=== PATIENT | male | born 1950 | race Two or more races ===

== ENCOUNTER 2020-11-10 16:00 | Inpatient (IN) | payer BC, OTHER ==
[2020-11-10] VITALS (7 sets, daily range): BP systolic 116–161; BP diastolic 55–78
[~2020-11-10] VITALS: Ht 180.3 cm; Wt 99.3 kg
[2020-11-10] MEDS ORDERED: ATOR40TA PO (16:58)
[2020-11-10] MEDS ORDERED: AMLO-212 PO (16:58)
[2020-11-10] MEDS ORDERED: SERT-439 PO (16:58)
[2020-11-10] MEDS ORDERED: BUPR-52 PO (16:58)
[2020-11-10] MEDS ORDERED: LEVO50TA8 PO (16:58)
[2020-11-10] MEDS ORDERED: IV NS 0.9% 1,000 ML IV PRN (18:00)
[2020-11-10] MEDS ORDERED: ONDANSETRON HCL/PF 4 MG/2 ML VIAL IVP PRN (18:00)
[2020-11-10] MEDS ORDERED: HYDROCODONE/APAP 5/325MG TABLET PO PRN (18:00)
[2020-11-10] MEDS ORDERED: ACETAMINOPHEN 325 MG TABLET PO PRN (18:00)
[2020-11-10] MEDS ORDERED: MAGNESIUM HYDROXIDE 30 ML UDC PO PRN (18:00)
[2020-11-10] MEDS ORDERED: MAG HYDROX/AL HYDROX/SIMETH 30 ML UDC PO PRN (18:00)
[2020-11-10] MEDS ORDERED: Z GUARD REMEDY 2 OZ OINT TP PRN (18:00)
[2020-11-10] MEDS ORDERED: DEXTROSE 50%-WATER 50 ML DISP.SYRIN IV PRN (18:30)
--- NOTE | 2020-11-10 18:30 | NUR ---
RN INITIAL NOTES RECEIVED PT DIRECT ADMIT FROM [facility]. PT A/OX2-3 WITH PERIODS OF CONFUSION. ON 02 VIA [place]. NO RESPIRATORY DISTRESS NOTED. PLACED COMFORTABLY TO BED. CONNECTED TO MONITOR. TENA PICC IN PLACE. D5W, POTASSIUM CHLORIDE AND POTASSIUM PHOSPHATE INFUSING. INSULIN DRIP, HEPARIN DRIP AND AMIO DRIP OFF PRIOR TO TRANSFER PER REPORT. CALLED DR ALCALA FOR ADMISSION ORDERS. SKIN ASSESSMENT DONE, PICTURES TAKEN AND PLACED IN CHART. WILL MONITOR
[2020-11-10 18:44] LABS: HEMOGLOBIN 10.9 g/dL (13.5-17.5); NEUTROPHILS # (AUTO) 8.2 /CMM (1.8-8.9)
[2020-11-10 18:45] LABS: CALCIUM, SERUM 7.8 mg/dL (8.5-10.1); CREATININE 1.3 mg/dL (0.6-1.3); POTASSIUM 4.2 mmol/L (3.5-5.1)
[2020-11-10 18:47] LABS: BASOPHILS % (AUTO) 0.2 % (0.0-2.0); EOSINOPHILS % (AUTO) 0.2 % (0.0-6.0); HEMATOCRIT 32 % (39-51); LYMPHOCYTES # (AUTO) 0.5 /CMM (0.8-4.8); LYMPHOCYTES % (AUTO) 5.5 % (20.0-44.0); MEAN CORPUSCULAR HGB CONC 34 g/dl (31.0-36.0); MEAN CORPUSCULAR VOLUME 93 fL (80-96); MONOCYTES # (AUTO) 0.8 /CMM (0.1-1.30); NEUTROPHILS % (AUTO) 86.1 % (43.0-81.0); PLATELET COUNT (AUTO) 107 /CMM (150-450); RED BLOOD CELL COUNT(AUTO) 3.49 MIL/uL (4.5-6.0); WHITE BLOOD COUNT (AUTO) 9.6 K/uL (4.3-11.0)
[2020-11-10 18:48] LABS: MAGNESIUM 2.4 mg/dL (1.8-2.4); PHOSPHORUS 3.2 mg/dL (2.5-4.9)
--- NOTE | 2020-11-10 19:27 | NUR ---
RN NOTES LAB VALUES RELAYED TO DR ALCALA. AWAITING FOR CALL BACK. NO SIGNIFICANT CHANGE NOTED. DENIES ANY PAIN. WILL ENDORSE FOR CONTINUITY OF CARE
--- NOTE | 2020-11-10 19:46 | NUR ---
ORDERS FROM CARI TO D/C NS AND CONTINUE D5W AT 75CC/HR WITH CBC, BMP, MG, AND PHOS LABS IN THE AM.
[2020-11-10 20:03] LABS: BAND % (MANUAL) 7 % (0.0-5.0); LYMPHOCYTES % (MANUAL) 8 % (16-48); MONOCYTES % (MANUAL) 5 % (0-11.0); NEUTROPHILS % (MANUAL) 80 (42-76)
[2020-11-10] MEDS: IV D5W 1,000 ML IV PRN (20:05)
[2020-11-10] MEDS: ENOXAPARIN SODIUM 40 MG/0.4 ML DISP.SYRIN SQ SCH (20:52)
[2020-11-10] MEDS: BUPROPION XL 150 MG TAB.ER.24 PO SCH (21:07)
[2020-11-10] MEDS: BLOOD SUGAR DIAGNOSTIC 1 EACH STRIP IN SCH (21:07)
[2020-11-10] MEDS: INSULIN REGULAR, HUMAN 100 UNIT/ML 3 ML VIAL SQ PRN (21:21)
[2020-11-11] VITALS (17 sets, daily range): BP systolic 127–154; BP diastolic 57–95
[2020-11-11] MEDS: INSULIN REGULAR, HUMAN 100 UNIT/ML 3 ML VIAL SQ PRN ×6 (01:24→23:29)
[2020-11-11] MEDS: BLOOD SUGAR DIAGNOSTIC 1 EACH STRIP IN SCH ×6 (01:26→23:24)
[2020-11-11 05:23] LABS: BASOPHILS % (AUTO) 0.3 % (0.0-2.0); EOSINOPHILS % (AUTO) 0.1 % (0.0-6.0); HEMATOCRIT 32 % (39-51); HEMOGLOBIN 10.9 g/dL (13.5-17.5); LYMPHOCYTES # (AUTO) 0.6 /CMM (0.8-4.8); LYMPHOCYTES % (AUTO) 7.2 % (20.0-44.0); MEAN CORPUSCULAR HGB CONC 34 g/dl (31.0-36.0); MEAN CORPUSCULAR VOLUME 92 fL (80-96); MONOCYTES # (AUTO) 0.6 /CMM (0.1-1.30); MONOCYTES % (AUTO) 7.1 % (2.0-12.0); NEUTROPHILS # (AUTO) 7.5 /CMM (1.8-8.9); NEUTROPHILS % (AUTO) 85.3 % (43.0-81.0); PLATELET COUNT (AUTO) 122 /CMM (150-450); RED BLOOD CELL COUNT(AUTO) 3.47 MIL/uL (4.5-6.0); WHITE BLOOD COUNT (AUTO) 8.8 K/uL (4.3-11.0)
[2020-11-11 05:45] LABS: CALCIUM, SERUM 7.9 mg/dL (8.5-10.1); CREATININE 1.2 mg/dL (0.6-1.3); MAGNESIUM 2.2 mg/dL (1.8-2.4); PHOSPHORUS 2.7 mg/dL (2.5-4.9)
--- NOTE | 2020-11-11 07:45 | NUR ---
EXTRACTOR OPERATOR SOLVENT PROCESS OPENING NOTES Patient received in bed and not in any respiratory distress. No c/o sob. On 02 at 3 liters with 02 Saturation of 96%. Patient's Iv D5 running at 75 ml /hour to right upperarm picc line. No c/o pain or discomfort. Bed is in lowest and locked position. Call light with in reach. Will continue to monitor.
[2020-11-11] MEDS: LEVOTHYROXINE SODIUM 50 MCG TABLET PO SCH (09:07)
[2020-11-11] MEDS: SERTRALINE HCL 50 MG TABLET PO SCH (09:07)
[2020-11-11] MEDS: AMLODIPINE BESYLATE 5 MG TABLET PO SCH (09:07)
[2020-11-11] MEDS: ATORVASTATIN 40 MG TABLET PO SCH (09:07)
[2020-11-11 12:24] LABS: BILIRUBIN,URINE NEGATIVE (NEGATIVE); COLOR,URINE YELLOW (YELLOW); LEUKOCYTE ESTERASE ,URINE TRACE (NEGATIVE); NITRITE, URINE NEGATIVE (NEGATIVE); PH,URINE 5.5 (5.0-8.0); PROTEIN,URINE 30 mg/dl (NEGATIVE); UGLUCOSE 250 MG/DL mg/dL (NEGATIVE)
--- NOTE | 2020-11-11 12:32 | NUR ---
LAND CONSERVATION SPECIALIST NOTES Patient transferred to Med surg at 12 noon. Prior to transfer, patient provided georgina care. Noted with 400 cc urine output in urinal. Collect Urine sample per MD orders. Patient did not c/o sob, no s/s of respiratory distress. Report given at bedside to EDMAR Hickey. Patient transferred with sock mender. On 02 3 liters while transferring with 02 sat 98%.
[2020-11-11] MEDS: IV D5W 1,000 ML IV PRN (12:59)
[2020-11-11 13:07] LABS: BACTERIA,URINE Few /HPF (None Seen); SQUAMOUS EPITHELIAL CELL,UR Rare /HPF (None Seen)
[2020-11-11 13:08] LABS: URINE AMORPHOUS URATE Few /HPF (None Seen)
--- NOTE | 2020-11-11 19:53 | NUR ---
END OF SHIFT SUMMARY RECEIVED PT VIA BED. TRANSFERRED PT FROM ICU. BEDSIDE REPORT GIVEN BY REBECCA. NC 3LPM. A/O X 2-3. NO SOB NOTED. NO S/S OF RESPIRATORY DISTRESS. IV SITE TENA PICC. L AC #18, INTACT, D5W RUNNING @ 75 ML/HR. ON CLEAR LIQUID DIET. SAFETY MEASURES MAINTAINED. BED IN LOWEST POSITION, BRAKES LOCKED. SIDE RAILS UP. CALL LIGHT WITHIN REACH. WILL ENDORSE TO UNHAIRING INSPECTOR FOR ELEUTERIO.
--- NOTE | 2020-11-11 20:18 | NUR ---
MS/TELE/RN RECEIVED PATIENT LYING ON AWAKE, ALERT, ORIENTED, COMFORTABLE, NO C/O PAIN, NO DISTRESS NOTE, FALL PRECAUTIONS PER PROTOCOL, ENCOURAGED TO USE THE CALL LIGHT FOR ANY ASSISTANCE, VERBALIZED UNDERSTANDING, WILL MONITOR.
[2020-11-11] MEDS: BUPROPION XL 150 MG TAB.ER.24 PO SCH (23:23)
[2020-11-11] MEDS: ENOXAPARIN SODIUM 40 MG/0.4 ML DISP.SYRIN SQ SCH (23:29)
[2020-11-12] VITALS: BP 144/80
[2020-11-12] MEDS: INSULIN REGULAR, HUMAN 100 UNIT/ML 3 ML VIAL SQ PRN ×6 (01:10→22:33)
[2020-11-12] MEDS: BLOOD SUGAR DIAGNOSTIC 1 EACH STRIP IN SCH ×6 (01:13→22:32)
[2020-11-12 04:00] VITALS: BP 157/50
[2020-11-12] MEDS: IV D5W 1,000 ML IV PRN (04:25)
[2020-11-12 06:58] LABS: BASOPHILS % (AUTO) 0.2 % (0.0-2.0); EOSINOPHILS % (AUTO) 0.1 % (0.0-6.0); HEMATOCRIT 32 % (39-51); HEMOGLOBIN 10.8 g/dL (13.5-17.5); LYMPHOCYTES # (AUTO) 0.8 /CMM (0.8-4.8); LYMPHOCYTES % (AUTO) 9.8 % (20.0-44.0); MEAN CORPUSCULAR HGB CONC 34 g/dl (31.0-36.0); MEAN CORPUSCULAR VOLUME 93 fL (80-96); MONOCYTES # (AUTO) 0.5 /CMM (0.1-1.30); MONOCYTES % (AUTO) 6.3 % (2.0-12.0); NEUTROPHILS # (AUTO) 6.8 /CMM (1.8-8.9); NEUTROPHILS % (AUTO) 83.6 % (43.0-81.0); PLATELET COUNT (AUTO) 147 /CMM (150-450); RED BLOOD CELL COUNT(AUTO) 3.48 MIL/uL (4.5-6.0); WHITE BLOOD COUNT (AUTO) 8.2 K/uL (4.3-11.0)
--- NOTE | 2020-11-12 07:01 | NUR ---
MS/TELE/RN PATIENT IS AWAKE, ALERT, ORIENTED, COMFORTABLE, NO C/O PAIN, NO DISTRESS NOTED, ON AND OFF SLEEP NOTED, THE WHOLE SHIFT, ALL NEEDS ATTENDED AT THIS TIME, WILL CONTINUE TO MONITOR.
[2020-11-12 07:15] LABS: CALCIUM, SERUM 8.1 mg/dL (8.5-10.1); CREATININE 1.2 mg/dL (0.6-1.3); MAGNESIUM 2.2 mg/dL (1.8-2.4); PHOSPHORUS 2.4 mg/dL (2.5-4.9); POTASSIUM 3.8 mmol/L (3.5-5.1)
[2020-11-12] MEDS: LEVOTHYROXINE SODIUM 50 MCG TABLET PO SCH (08:11)
[2020-11-12] MEDS: AMLODIPINE BESYLATE 5 MG TABLET PO SCH (08:11)
[2020-11-12] MEDS: SERTRALINE HCL 50 MG TABLET PO SCH (08:11)
[2020-11-12] MEDS: ATORVASTATIN 40 MG TABLET PO SCH (08:12)
[2020-11-12] MEDS: IV D5W 1,000 ML IV SCH ×2 (08:13→17:01)
[2020-11-12 09:42] VITALS: BP 144/75
[2020-11-12 12:00] VITALS: BP 139/69
[2020-11-12 16:13] VITALS: BP 126/62
--- NOTE | 2020-11-12 19:27 | NUR ---
END OF SHIFT SUMMARY PATIENT IN BED. A/O X 2-3. CONFUSED AT TIMES. NC 3LPM. NO SOB NOTED. NO S/S OF RESPIRATORY DISTRESS. IV SITE TENA PICC, INTACT, D5W RUNNING @100 ML/HR. TELE READING ST 107. ON CLEAR LIQUID DIET. ROUTINE MEDS WERE GIVEN ORDERED. SAFETY MEASURES MAINTAINED. BED IN LOWEST POSITION, BRAKES LOCKED. SIDE RAILS UP. CALL LIGHT WITHIN REACH. WILL ENDORSE TO CERTIFIED TUMOR REGISTRAR FOR ELEUTERIO.
--- NOTE | 2020-11-12 19:30 | NUR ---
TELE/RN OPENING NOTES RECEIVED PATIENT RESTING IN BED. PATIENT IS ALERT AND ORIENTED X 2-3. PATIENTS BREATHING IS EVEN AND UNLABORED. NO SIGNS OF SOB OR RESPIRATORY DISTRESS NOTED. PATIENT HAS IV ACCESS ON RIGHT UA PICC LINE INTACT. SAFETY MEASURES ARE IN PLACE, BED IS LOCKED AND PLACED IN THE LOWEST POSITION. CALL LIGHT IS WITHIN REACH, SIDE RAILS UP X 2. WILL CONTINUE TO MONITOR THROUGH OUT SHIFT.
[2020-11-12 20:00] VITALS: BP 142/84
[2020-11-12] MEDS: BUPROPION XL 150 MG TAB.ER.24 PO SCH (22:21)
[2020-11-12] MEDS: ENOXAPARIN SODIUM 40 MG/0.4 ML DISP.SYRIN SQ SCH (22:22)
[2020-11-13] VITALS: BP 158/84
[2020-11-13] MEDS: INSULIN REGULAR, HUMAN 100 UNIT/ML 3 ML VIAL SQ PRN ×6 (01:26→21:16)
[2020-11-13] MEDS: BLOOD SUGAR DIAGNOSTIC 1 EACH STRIP IN SCH ×6 (01:27→21:11)
[2020-11-13 04:00] VITALS: BP 158/89
[2020-11-13] MEDS: IV D5W 1,000 ML IV SCH (04:32)
--- NOTE | 2020-11-13 06:55 | NUR ---
TELE/RN CLOSING NOTES PATIENT RESTING IN BED. PATIENT IS ALERT AND ORIENTED X 2-3. PATIENTS BREATHING IS EVEN AND UNLABORED. NO SIGNS OF SOB OR RESPIRATORY DISTRESS NOTED. PATIENT HAS IV ACCESS ON RIGHT UA PICC LINE INTACT. ALL NEEDS HAVE BEEN DURING SHIFT. SAFETY MEASURES ARE IN PLACE, BED IS LOCKED AND PLACED IN THE LOWEST POSITION. CALL LIGHT IS WITHIN REACH, SIDE RAILS UP X 2. WILL ENDORSE CARE TO DAY SHIFT NURSE.
[2020-11-13 06:56] LABS: BASOPHILS % (AUTO) 0.2 % (0.0-2.0); EOSINOPHILS % (AUTO) 0.3 % (0.0-6.0); HEMATOCRIT 32 % (39-51); HEMOGLOBIN 10.6 g/dL (13.5-17.5); LYMPHOCYTES # (AUTO) 0.9 /CMM (0.8-4.8); LYMPHOCYTES % (AUTO) 7.5 % (20.0-44.0); MEAN CORPUSCULAR HGB CONC 33 g/dl (31.0-36.0); MEAN CORPUSCULAR VOLUME 92 fL (80-96); MONOCYTES # (AUTO) 0.5 /CMM (0.1-1.30); NEUTROPHILS # (AUTO) 10.9 /CMM (1.8-8.9); PLATELET COUNT (AUTO) 190 /CMM (150-450); RED BLOOD CELL COUNT(AUTO) 3.46 MIL/uL (4.5-6.0); WHITE BLOOD COUNT (AUTO) 12.4 K/uL (4.3-11.0)
[2020-11-13] MEDS: LEVOTHYROXINE SODIUM 50 MCG TABLET PO SCH (07:14)
--- NOTE | 2020-11-13 07:28 | NUR ---
OIL PUMP STATION OPERATOR CHIEF OPENING NOTES PT RECEIVED AWAKE IN BED IN NO ACUTE SIGNS OF DISTRESS. A/O X2-3. ABLE TO MAKE NEEDS KNOWN, DENIES PAIN OR ANY DISCOMFORTS AT THIS TIME. ON 02 VIA N/C AT 3 LPM, TOLERATING WELL WITH NO SOB NOTED. TELE MONITOR SHOWS ST WITH 1ST DEGREE AV BLOCK, HR 102, NO C/O CARDIAC DISTRESS VOICED. TENA PICC LINE INTACT WITH IVF RUNNING ORDERED. SAFETY MEASURES IN PLACE: BED IN LOWEST LOCKED POSITION WITH SR UP X2. CALL LIGHT WITHIN REACH. WILL CONTINUE TO MONITOR
--- NOTE | 2020-11-13 07:53 | NUR ---
CORRECTION: TELEMONITOR IS NOT ST WITH 1ST DEGREE AV BLOCK BUT NSR WITH HR ON THE 90'S, NO C/O CARDIAC DISTRESS VOICED. WILL CONTINUE TO MONITOR.
[2020-11-13 07:57] LABS: CREATININE 1.2 mg/dL (0.6-1.3); MAGNESIUM 1.7 mg/dL (1.8-2.4); PHOSPHORUS 2.7 mg/dL (2.5-4.9); POTASSIUM 3.5 mmol/L (3.5-5.1)
[2020-11-13 08:10] LABS: THYROID STIMULATING HORMONE 3.555 uIU/mL (0.358-3.74); URIC ACID 4.2 mg/dL (2.6-7.2)
[2020-11-13] MEDS: SERTRALINE HCL 50 MG TABLET PO SCH (09:02)
[2020-11-13] MEDS: ATORVASTATIN 40 MG TABLET PO SCH (09:02)
[2020-11-13] MEDS: AMLODIPINE BESYLATE 5 MG TABLET PO SCH (09:03)
[2020-11-13 09:11] VITALS: BP 142/80
[2020-11-13] MEDS: Magnesium 1GM/D5W 100ML PREMIX 100 ML IV SCH ×2 (09:47→10:50)
[2020-11-13] MEDS ORDERED: IV D5W 1,000 ML IV PRN (10:00)
[2020-11-13] MEDS ORDERED: LINA5TAB PO (10:46)
[2020-11-13] MEDS ORDERED: LINAGLIPTIN 5 MG TABLET PO SCH (11:00)
[2020-11-13 15:52] VITALS: BP 156/67
--- NOTE | 2020-11-13 18:30 | NUR ---
RN NOTES PT TRIED TO PLACE ON ROOM AIR. PT NOTED WITH MILD SOB AND DESATURATING TO 85-86%. PT PLACED BACK ON 02 VIA N/C AT 3LPM, SP02 WENT UP TO 93-94%. WILL CONTINUE TO MONITOR.
--- NOTE | 2020-11-13 18:43 | NUR ---
MS RN OPENING NOTES PT AWAKE AND RESTING AT HIGH BACKREST POSITION AT THIS TIME. A/O X2-3. ABLE TO MAKE NEEDS KNOWN. NOTED WITH PERIOD OPF CONFUSION DURING THE DAY, REDIRECTED AND REORIENTED. ON 02 VIA N/C AT 3 LPM, TOLERATING WELL, SP02 [phone] @ THIS TIME. TENA PICC LINE INTACT WITH IVF RUNNING ORDERED. ALL NEEDS AND CARE ATTENDED WELL. SAFETY MEASURES IN PLACE: BED IN LOWEST LOCKED POSITION WITH SR UP X2. CALL LIGHT WITHIN REACH. PT FOR D/C HOME TONIGHT. AWAITING 02 TO BE DELIVERED TO HIS HOME BEFORE DISCHARGING PT. WILL ENDORSE TO FLAKING ROLL OPERATOR NURSE.
--- NOTE | 2020-11-13 19:35 | NUR ---
MS RN NOTES: AMBULANCE CAME TO CONCESSION ATTENDANT PATIENT TO GO HOME BUT PER DUMP MOTORMAN AND PATIENT'S OXYGEN WAS NOT DELIVERED YET AT HOME. DUMP MOTORMAN SAID NOT TO CONCESSION ATTENDANT PATIENT UNLESS O2 IS DELIVERED. ONCE IT IS DELIVERED [facility] DUMP MOTORMAN WILL CALL TONIGHT FOR PATIENT TO BE PICKED UP HOME.
--- NOTE | 2020-11-13 20:35 | NUR ---
MS RN NOTES: RECEIVED A CALL FROM [facility] WOOL CLASSER Nayana MELENDEZXYGEN IS ALREADY DELIVERED AT HOME. [facility] WILL CAT SCAN TECH PATIENT AT 2130. PATIENT MADE AWARE.
[2020-11-13] MEDS: ENOXAPARIN SODIUM 40 MG/0.4 ML DISP.SYRIN SQ SCH (21:13)
[2020-11-13] MEDS: BUPROPION XL 150 MG TAB.ER.24 PO SCH (21:15)
--- NOTE | 2020-11-13 22:14 | NUR ---
MS STEREO OPERATOR NOTES: PATIENT DISCHARGED HOME IN STABLE CONDITION. PT IS ALERT AND ORIENTED X2-3, ABLE TO VERBALIZE NEEDS. V/S TAKEN, STABLE AND RECORDED. PHOTOS OF SKIN ISSUES PLACED IN CHART, IV ICCESS TO TENA MIDLINE REMOVED, DRY PRESSURE DRESSING APPLIED. HEALTH TEACHINGS/DISCHARGED INSTRUCTIONS GIVEN TO PATIENT AND VERBALIZED UNDERSTANDING. EXIT FOLDER GIVEN TO EMT'S. PATIENT LEFT THE UNIT VIA GURNEY AT 2214 ACCOMPANIED BY 2 EMT'S. CHARGE NURSE MADE AWARE OF THE DISCHARGE. Addendum: 11/14/20 at 0101 by PETAR ADAMS RN PICC LINE NOT MIDLINE
== END 2020-11-13 22:14 | disposition home health service (06) | DRG 637 ==
LOC: ICU 16:51 → TELE 11-11 11:55 → MED 11-13 16:54
PROVIDERS: ADMIT Internal Medicine; ATTEND Internal Medicine
DX: E11.10 Type 2 diabetes mellitus with ketoacidosis without coma (principal); G93.41 Metabolic encephalopathy; N17.0 Acute kidney failure with tubular necrosis; E87.0 Hyperosmolality and hypernatremia; N12 Tubulo-interstitial nephritis, not specified as acute or chronic; E03.9 Hypothyroidism, unspecified; D63.8 Anemia in other chronic diseases classified elsewhere; Z79.4 Long term (current) use of insulin; I48.91 Unspecified atrial fibrillation; I10 Essential (primary) hypertension; E66.9 Obesity, unspecified; Z68.30 Body mass index [BMI] 30.0-30.9, adult
CPT/HCPCS: 36415; 80048-TC; 81001; 82962-TC; 83735-TC; 84100-TC; 84443-TC; 84550-TC; 85025-TC; 87081-TC; 87086-TC; 97116-TC; 97530-TC; A4349; G0378; J1650; J1815; J3475; J7042; J7070

== ENCOUNTER 2021-04-02 15:35 | Inpatient (IN) | payer BC, OTHER ==
[~2021-04-02 15:35] MED LIST: AMLO-212 PO; ATOR40TA PO; BUPR-54 PO; LEVO50TA8 PO; SERT-439 PO
--- NOTE | 2021-04-02 20:00 | NUR ---
QUARTER BACKER NOTE ADMIT 70 YEAR OLD MALE TO [facility] DIRECT ADMIT FORM [facility] WITH CHIEF COMPLAIN OF ABDOMINAL PAIN AND WITH DIAGNOSIS:UTI ON MED SURG MONITORING ,ALERT ORIENTED X2-3 VERBALLY RESPONSIVE ON ROOM AIR O2:97% IV SITE IS ON RIGHT AC SALINE LOCK #20,INCONTINENT TO BOWEL/BLADDER,BILATERAL LOWER EXTREMITIES EDEMA AND OPEN WOUND ON RIGHT LOWER LEG,AND SACRUM AREA,SAFETY MEASURE IMPLEMENT CALL LIGHT WITHIN REACH, CONTINUE TO MONITOR
[2021-04-02] MEDS ORDERED: ZOLPIDEM TARTRATE 5 MG TABLET PO PRN (21:00)
[2021-04-02] MEDS ORDERED: ACETAMINOPHEN 325 MG TABLET PO PRN (21:00)
[2021-04-02] MEDS ORDERED: MAG HYDROX/AL HYDROX/SIMETH 30 ML UDC PO PRN (21:00)
[2021-04-02] MEDS ORDERED: MAGNESIUM HYDROXIDE 30 ML UDC PO PRN (21:00)
[2021-04-02] MEDS ORDERED: Z GUARD REMEDY 2 OZ OINT TP PRN (21:00)
[2021-04-02] MEDS ORDERED: ONDANSETRON HCL/PF 4 MG/2 ML VIAL IVP PRN (21:00)
[2021-04-02] MEDS: CEFTRIAXONE 1 G in IV D5W 50 ML IV SCH (21:11)
[2021-04-02] MEDS: BUPROPION XL 150 MG TAB.ER.24 PO SCH (21:30)
[2021-04-02 22:00] VITALS: BP 113/54
--- NOTE | 2021-04-02 23:00 | NUR ---
RN NOTE PATIENT SEEN AND EXAMINED BY DR SRIVASTAVA, WITH NEW ORDER FOR BLOOD SUGAR MEDICATION,DR SRIVASTAVA ASKED FOR GET INFORMATION REGARDING HOME MEDS FROM PATIENT'S UNFORTUNATELY NO NUMBER FOR CALL WILL ENDORSE MORNING SHIFT FOR FOLLOW UP.
[2021-04-03 05:43] VITALS: BP 123/54
--- NOTE | 2021-04-03 06:00 | NUR ---
RN NOTE PATIENT REFUSES TO [facility] EXPLAINED HIM HE SHOULD REMOVE IT HE INSIST NOT REMOVING,CONTINUE TO MONITOR.
[2021-04-03 06:32] LABS: BASOPHILS % (AUTO) 0.3 % (0.0-2.0); EOSINOPHILS % (AUTO) 1.8 % (0.0-6.0); HEMATOCRIT 32 % (39-51); HEMOGLOBIN 10.9 g/dL (13.5-17.5); LYMPHOCYTES # (AUTO) 1.9 /CMM (0.8-4.8); MEAN CORPUSCULAR HGB CONC 34 g/dl (31.0-36.0); MEAN CORPUSCULAR VOLUME 90 fL (80-96); MONOCYTES # (AUTO) 0.5 /CMM (0.1-1.30); MONOCYTES % (AUTO) 6.7 % (2.0-12.0); NEUTROPHILS # (AUTO) 5.3 /CMM (1.8-8.9); NEUTROPHILS % (AUTO) 67.2 % (43.0-81.0); PLATELET COUNT (AUTO) 194 /CMM (150-450); RED BLOOD CELL COUNT(AUTO) 3.54 MIL/uL (4.5-6.0); WHITE BLOOD COUNT (AUTO) 7.8 K/uL (4.3-11.0)
--- NOTE | 2021-04-03 06:40 | NUR ---
RN NOTE PATIENT REMAINS ON ALERT ORIENTED X2-3 VERBALLY RESPONSIVE ON ROOM AIR O2:96% NO SOB NOT ACUTE DISTRESS NOTED,ALL DUE MEDS GIVEN MD ORDERED KEEP CLEAN AND DRY ALL THE TIME,ALL NEEDS MET. ENDORSE NEXT COMING SHIFT FOR CONTINUATION OF CARE.
[2021-04-03 07:08] LABS: CALCIUM, SERUM 8.4 mg/dL (8.5-10.1); CREATININE 0.7 mg/dL (0.6-1.3); MAGNESIUM 1.5 mg/dL (1.8-2.4); PHOSPHORUS 2.5 mg/dL (2.5-4.9); POTASSIUM 3.2 mmol/L (3.5-5.1)
--- NOTE | 2021-04-03 07:30 | NUR ---
RN OPENING NOTES Patient is alert and oriented. Patient is breathing even and unlabored. ON room air with 02 sat of 98%. Iv site to right ac saline lock. No c/o pain or discomfort. Bed is in lowest and locked position. Call light with in reach.
[2021-04-03 08:00] VITALS: BP 97/52
[2021-04-03] MEDS: ATORVASTATIN 40 MG TABLET PO SCH (08:22)
[2021-04-03] MEDS: SERTRALINE HCL 50 MG TABLET PO SCH (08:22)
[2021-04-03] MEDS: LEVOTHYROXINE SODIUM 50 MCG TABLET PO SCH (08:22)
[2021-04-03] MEDS: AMLODIPINE BESYLATE 5 MG TABLET PO SCH (08:22)
--- NOTE | 2021-04-03 10:53 | NUR ---
WOUND CARE CONSULT: PT PRESENTS WITH RT GREAT TOE DRY WOUND, SCARRING TO RT LOWER LEG (PREVIOUS SKIN GRAFT SITE) AND INTACT DEEP TISSUE INJURY TO SACRUM, ALL PRESENT ON ADMISSION. PT IS INCONTINENT. RECOMMENDATIONS MADE FOR SKIN PROTECTION AND WOUND CARE. DISCUSSED WITH NURSING STAFF. DPM CONSULT CALLED TO DR CANSECO. CARRIE ISOFLEX LOW AIRLOSS BED TO BE PLACED. MD IN AGREEMENT WITH PLAN OF CARE. Addendum: 04/03/21 at 1055 by MT DORSEY WNDNU Amended: Links added.
[2021-04-03] MEDS: POTASSIUM CHLORIDE 20 MEQ TAB.PRT.SR PO SCH ×2 (12:15→13:57)
[2021-04-03] MEDS: Magnesium 1GM/D5W 100ML PREMIX 100 ML IV SCH ×2 (12:15→13:56)
[2021-04-03 16:00] VITALS: BP 128/70
[2021-04-03] MEDS ORDERED: DEXTROSE 50%-WATER 50 ML DISP.SYRIN IV PRN (18:00)
--- NOTE | 2021-04-03 19:00 | NUR ---
RN NOTE RECEIVED PATIENT IN BED RESTING ALERT ORIENTED X2-3 VERBALLY RESPONSIVE ON ROOM AIR O2:99% IV SITE IS ON RIGHT HAND INTACT PATENT, INCONTINENT TO BOWEL/BLADDER,SAFETY MEASURE IMPLEMENT CALL LIGHT WITHIN REACH,BED IN LOW POSITION AND LOCKED CONTINUE TO MONITOR
--- NOTE | 2021-04-03 19:11 | NUR ---
RN CLOSING NOTES Patient is alert and oriented X 2/3. Patient is breathing even and unlabored. ON room air with 02 sat of 99%. Iv site to right HAND 24 GAUZE saline lock.Urine collected and lab to pecan picker. No c/o pain or discomfort. Bed is in lowest and locked position. Call light with in reach.
[2021-04-03] MEDS: CEFTRIAXONE 1 G in IV D5W 50 ML IV SCH (20:01)
[2021-04-03] MEDS: BUPROPION XL 150 MG TAB.ER.24 PO SCH (21:28)
[2021-04-03] MEDS: BLOOD SUGAR DIAGNOSTIC 1 EACH STRIP IN SCH (21:53)
[2021-04-03] MEDS: INSULIN REGULAR, HUMAN 100 UNIT/ML 3 ML VIAL SQ PRN (21:56)
[2021-04-04] VITALS (9 sets, daily range): BP systolic 120–157; BP diastolic 67–91
--- NOTE | 2021-04-04 02:30 | NUR ---
RN NOTE REPORT GIVEN TO SARAH HYATT FOR CONTINUATION OF CARE.
--- NOTE | 2021-04-04 02:38 | NUR ---
RN NOTE PT SLEEPING, AROUSES EASILY, ALERT. NO SIGNS OF DISTRESS NOTED. ALL SAFETY MEASURES IN PLACE. WILL CONTINUE TO MONITOR.
[2021-04-04 06:58] LABS: BASOPHILS % (AUTO) 0.3 % (0.0-2.0); EOSINOPHILS % (AUTO) 1.2 % (0.0-6.0); HEMATOCRIT 33 % (39-51); HEMOGLOBIN 11.1 g/dL (13.5-17.5); LYMPHOCYTES # (AUTO) 1.2 /CMM (0.8-4.8); LYMPHOCYTES % (AUTO) 15.4 % (20.0-44.0); MEAN CORPUSCULAR HGB CONC 34 g/dl (31.0-36.0); MEAN CORPUSCULAR VOLUME 90 fL (80-96); MONOCYTES # (AUTO) 0.5 /CMM (0.1-1.30); MONOCYTES % (AUTO) 6.6 % (2.0-12.0); NEUTROPHILS # (AUTO) 6.2 /CMM (1.8-8.9); NEUTROPHILS % (AUTO) 76.5 % (43.0-81.0); PLATELET COUNT (AUTO) 196 /CMM (150-450); WHITE BLOOD COUNT (AUTO) 8.1 K/uL (4.3-11.0)
--- NOTE | 2021-04-04 07:07 | NUR ---
RN NOTE PT REMAINS IN BED. PT WITH EPISODE OF CONFUSION, REORIENTED TO PLACE AND SITUATION. NO DISTRESS NOTED. DENIES ANY PAIN. AFEBRILE. IV REMAIN PATENT AND INTACT, ALL SAFETY MEASURES MAINTAINED, WILL ENDORSE TO NEXT SHIFT NURSE FOR ELEUTERIO.
--- NOTE | 2021-04-04 07:15 | NUR ---
RN OPENING NOTES PT RECEIVED IN BED RESTING IN SEMI-FOWLERS POSITION. PATIENT ON ROOM AIR TOLERATING WELL WITH NO SIGNS OF SOB. RAC IV ACCESS #20 G AND RIGHT HAND #24 PATENT AND INTACT. SAFETY PRECAUTIONS IMPLEMENTED, SIDE RAILS UP X2, CALL LIGHT WITHIN REACH, BED LOCKED IN LOWEST POSITION. WILL CONTINUE TO MONITOR AND PROVIDE CARE THROUGHOUT SHIFT.
[2021-04-04 07:42] LABS: CALCIUM, SERUM 8.7 mg/dL (8.5-10.1); CREATININE 0.8 mg/dL (0.6-1.3); MAGNESIUM 1.9 mg/dL (1.8-2.4); POTASSIUM 4.3 mmol/L (3.5-5.1)
[2021-04-04] MEDS: AMLODIPINE BESYLATE 5 MG TABLET PO SCH (09:00)
[2021-04-04] MEDS: SERTRALINE HCL 50 MG TABLET PO SCH (09:00)
[2021-04-04] MEDS ORDERED: CADEXOMER IODINE 40 GM TUBE TP SCH (09:00)
[2021-04-04] MEDS: LEVOTHYROXINE SODIUM 50 MCG TABLET PO SCH (09:00)
[2021-04-04] MEDS: ATORVASTATIN 40 MG TABLET PO SCH (09:00)
[2021-04-04] MEDS ORDERED: LORAZEPAM INJ 2 MG/ML VIAL IVP ONE (09:30)
--- NOTE | 2021-04-04 09:45 | NUR ---
patient transferred to icu. report given to Maricel. it was noted that polysomnography technologist noticed seizure while performing test. polysomnography technologist notified staff. staff then called cholo amos for ams and seizure. patient code dandre cancelled. patient respirations and pulse noted. railroad brakeman blessing ordered ativan 2mg iv push once for seizure. oral suctioning provided and patient placed on o2 therapy via face mask at [address] w/o contrast ordered. tech indicated possible bleed. railroad brakeman meenakshi soria made aware and patient then transferred to icu for higher level of care. called family, russell () to inform of situation.
--- NOTE | 2021-04-04 10:00 | NUR ---
ICU/RN PT TRANSFERRED FROM [facility] ,POST SEIZURES ACTIVITIES.LETHARGIC,POST CT OF THE HEAD.SHOWING BLEEDING.ON 10L SIMPLE MASK,SAT O2-100%.V/S STABLE,AFEBRILE.AM CARE PROVIDED.NEW IV STARTED. DUE MEDS ARE GIVEN ORDERED.
[2021-04-04] MEDS ORDERED: LEVETIRACETAM (500MG) 1,000 MG in IV NS 0.9% 100 ML IV STA (10:07)
--- NOTE | 2021-04-04 10:11 | NUR ---
reports of epidural hematoma received from radiologist dr. styles and relayed to meenakshi soria,transferred to icu per md order.
[2021-04-04] MEDS ORDERED: DEXAMETHASONE SOD PHOSPHATE 4 MG/ML VIAL IV SCH (10:30)
[2021-04-04] MEDS ORDERED: ROCURONIUM BROMIDE 50 MG/5 ML IV ONE (11:00)
[2021-04-04] MEDS ORDERED: FENTANYL CITRAT IV 2,500 MCG in IV NS 0.9% 200 ML IV PRN (11:00)
[2021-04-04] MEDS ORDERED: PROPOFOL 10MG/ML 50ML 50 ML IV PRN (11:00)
[2021-04-04] MEDS ORDERED: FENTANYL PF 100MCG/2ML AMPUL IV PRN (11:00)
[2021-04-04] MEDS: BLOOD SUGAR DIAGNOSTIC 1 EACH STRIP IN SCH (11:05)
--- NOTE | 2021-04-04 12:20 | NUR ---
@ [address] COTTON FOR AIRWAY PROTECTION. INTUBATED WITH 7.5 ET TUBE SECURED @ 22 CM LIPLINE. CO2 DETECTOR CHANGED TO YELLOW COLOR POST INTUBATION. BREATH SOUNDS CLEAR BILATERAL WITH SYMMETRICAL CHEST RISE POST INTUBATION. FOLLOWING VENT PARAMETERS SET ORDER: AC 14, VT 500ML, FIO2 40%, PEEP +5 VENT PLUGGED INTO RED OUTLET WITH ALARMS ON AND FUNCTIONING. SHERIFUBAG @ BEDSIDE. Addendum: 04/04/21 at 1240 by AMOR VELEZ RT Amended: Links added.
--- NOTE | 2021-04-04 12:30 | NUR ---
ICU/RN PT IS INTUBATED.F/C INSERTED.RIGHT IJ TLC PLACED BY JIM COTTON.DIPRIVAN STARTED FOR SEDATION ORDERED.
[2021-04-04] MEDS: INSULIN REGULAR, HUMAN 100 UNIT/ML 3 ML VIAL SQ PRN (13:27)
--- NOTE | 2021-04-04 13:35 | NUR ---
pushed in et tube 3 cm from 22 cm lipline to [address] peleg. bui aware on adjustment. Addendum: 04/04/21 at 1336 by AMOR VELEZ RT Amended: Links added.
[2021-04-04] MEDS ORDERED: ETOMIDATE 2 MG/ML VIAL IV ONE (14:04)
--- NOTE | 2021-04-04 15:00 | NUR ---
ICU/RN PT TRANSFERRED TO [facility] .REPORT GIVEN TO MAYLIN/RN .AND MARTELL/EDMAR.
== END 2021-04-04 14:05 | disposition short-term general hospital (02) | DRG 86 ==
LOC: MEDSG1 20:39 → TELE1 04-04 09:23 → ICU 04-04 10:03
PROVIDERS: ADMIT Family Medicine; ATTEND Nurse Practitioner Family
PROC: 5A1935Z Respiratory Ventilation, Less than 24 Consecutive Hours (ICD-10-PCS; principal; 2021-04-04)
PROC: 0BH17EZ Insertion of Endotracheal Airway into Trachea, Via Natural or Artificial Opening (ICD-10-PCS; 2021-04-04)
PROC: 05HM33Z Insertion of Infusion Device into Right Internal Jugular Vein, Percutaneous Approach (ICD-10-PCS; 2021-04-04)
PROC: B543ZZA Ultrasonography of Right Jugular Veins, Guidance (ICD-10-PCS; 2021-04-04)
DX: S06.5X0A Traumatic subdural hemorrhage without loss of consciousness, initial encounter (principal); N39.0 Urinary tract infection, site not specified; E44.1 Mild protein-calorie malnutrition; E03.9 Hypothyroidism, unspecified; E78.5 Hyperlipidemia, unspecified; I10 Essential (primary) hypertension; E11.43 Type 2 diabetes mellitus with diabetic autonomic (poly)neuropathy; F41.9 Anxiety disorder, unspecified; F32.9 Major depressive disorder, single episode, unspecified; E11.621 Type 2 diabetes mellitus with foot ulcer; K31.84 Gastroparesis; Z83.3 Family history of diabetes mellitus; M20.42 Other hammer toe(s) (acquired), left foot; M20.41 Other hammer toe(s) (acquired), right foot; Z98.890 Other specified postprocedural states; L97.529 Non-pressure chronic ulcer of other part of left foot with unspecified severity; Z79.899 Other long term (current) drug therapy; D63.8 Anemia in other chronic diseases classified elsewhere; E11.65 Type 2 diabetes mellitus with hyperglycemia; R56.9 Unspecified convulsions; W19.XXXA Unspecified fall, initial encounter; Y92.9 Unspecified place or not applicable; W06.XXXA Fall from bed, initial encounter; B96.20 Unspecified Escherichia coli [E. coli] as the cause of diseases classified elsewhere
CPT/HCPCS: 36415; 70450-TC; 71045-TC; 80048-TC; 80061-TC; 82962-TC; 83540-TC; 83735-TC; 84100-TC; 85025-TC; 87081-TC; 87086-TC; 87186-TC; 94002-TC; 94799-TC; C1751; C1769; G0378; J0696; J1815; J1953; J2060; J2405; J3010; J3475; J3490; J7030; J7050; J7060